=== PATIENT | female | born 1955 | race Caucasian/White ===

== ENCOUNTER 2019-07-04 06:47 | Day surgery (SDC) | payer OTHER ==
[~2019-07-04] VITALS: Ht 154.9 cm; Wt 81.6 kg
[2019-07-04] MEDS ORDERED: fentaNYL 0.05 MG/ML VIAL ONE (08:57)
[2019-07-04] MEDS ORDERED: LIDOCAINE 2% 100 MG/5 ML UJET TP ONE (08:57)
[2019-07-04] MEDS ORDERED: fentaNYL 0.05 MG/ML VIAL IVP ONE (10:05)
== END 2019-07-04 10:10 | disposition home or self-care (01) ==
LOC: MDS 06:47 → MMU 06:48 → MDS 10:10
PROVIDERS: ATTEND Internal Medicine Gastroenterology
DX: Z12.11 Encounter for screening for malignant neoplasm of colon (principal); K57.30 Diverticulosis of large intestine without perforation or abscess without bleeding; I10 Essential (primary) hypertension; E66.9 Obesity, unspecified; Z79.82 Long term (current) use of aspirin; Z79.899 Other long term (current) drug therapy
CPT/HCPCS: 45378; J3010